=== PATIENT | male | born 1980 | race African-American/Black ===

== ENCOUNTER 2018-03-14 17:22 | Observation (INO) | payer MEDICARE, MEDICAID ==
[~2018-03-14] VITALS: Ht 172.7 cm; Wt 179.5 kg
[2018-03-14] MEDS ORDERED: METF500T5 PO (17:40)
[2018-03-14] MEDS ORDERED: GABA300C10 PO (17:40)
[2018-03-14] MEDS ORDERED: LOSA25TA5 PO (17:40)
[2018-03-14] MEDS ORDERED: OLAN10TA9 PO (17:40)
[2018-03-14 17:54] LABS: BASOPHILS # (AUTO) 0.02 x10^3/uL (0-0.1); BASOPHILS % (AUTO) 0 % (0-1); EOSINOPHILS # (AUTO) 0.07 x10^3/uL (0-0.4); EOSINOPHILS % (AUTO) 2 % (1-7); LYMPHOCYTES # (AUTO) 1.09 x10^3/uL (1-3.4); LYMPHOCYTES % (AUTO) 21 % (22-44); MD NO; MEAN CORPUSCULAR HEMOGLOBIN 23.9 pg (27.5-34.5); MEAN CORPUSCULAR HGB CONC 30.9 g/dL (33.2-36.2); MEAN CORPUSCULAR VOLUME 77.2 fL (81-97); MEAN PLATELET VOLUME 8.8 fL (7.4-10.4); MONOCYTES # (AUTO) 0.59 x10^3/uL (0.2-0.8); MONOCYTES % (AUTO) 12 % (2-9); NEUTROPHILS # (AUTO) 3.32 x10^3/uL (1.8-6.8); NEUTROPHILS % (AUTO) 65 % (42-75); PLATELET COUNT 274 x10^3/uL (130-400); RED BLOOD COUNT 5.24 x10^6/uL (4.38-5.82); RED CELL DISTRIBUTION WIDTH 16.6 % (9.4-14.8)
[2018-03-14 18:02] LABS: ALANINE AMINOTRANSFERASE 30 U/L (12-78); ALBUMIN 3.3 g/dL (3.4-5.0); ANION GAP 6 mmol/L (5-15); CALCIUM 8.2 mg/dL (8.5-10.1); CHLORIDE 106 mmol/L (98-107); CREATININE 1.18 mg/dL (0.7-1.3)
[2018-03-14 18:03] LABS: SALICYLATE LEVEL < 1.7 mg/dL (2.8-20.0)
[2018-03-14 18:04] LABS: ALKALINE PHOSPHATASE 67 U/L (45-117); BILIRUBIN,TOTAL 0.2 mg/dL (0.2-1.0); TOTAL PROTEIN 6.8 g/dL (6.4-8.2)
[2018-03-14 18:06] LABS: ACETAMINOPHEN < 2 mcg/mL (10-30)
[2018-03-14 18:13] LABS: AMPHETAMINE SCREEN, URINE Positive (Negative); BARBITURATE SCREEN, URINE Negative (Negative); BENZODIAZEPINE SCREEN, URINE Negative (Negative); CANNABINOID SCREEN, URINE Positive (Negative); COCAINE SCREEN, URINE Negative (Negative); METHADONE SCREEN, URINE Negative (Negative); OPIATE SCREEN, URINE Negative (Negative)
[2018-03-14] MEDS ORDERED: ZIPRASIDONE 20MG CAPSULE PO SCH (23:30)
[2018-03-14] MEDS ORDERED: ONDANSETRON ODT 4 MG PO PRN (23:30)
[2018-03-14] MEDS ORDERED: ACETAMINOPHEN 325 MG TABLET PO PRN (23:30)
[2018-03-15 00:10] VITALS: BP 138/97
[2018-03-15] MEDS ORDERED: INSULIN REGULAR 100 UNITS/ML, 3ML VIAL SQ-INSULIN SCH (07:00)
[2018-03-15] MEDS ORDERED: metFORMIN 500 MG TABLET PO SCH (09:00)
[2018-03-15] MEDS ORDERED: LOSARTAN 25MG TABLET PO SCH (09:00)
== END 2018-03-15 03:16 ==
LOC: ED 18:46 → EDIP 22:09 → 2N 23:58
PROVIDERS: ADMIT Internal Medicine; ATTEND Internal Medicine
DX: R45.851 Suicidal ideations (principal); R44.3 Hallucinations, unspecified; F31.9 Bipolar disorder, unspecified; E11.42 Type 2 diabetes mellitus with diabetic polyneuropathy; E66.01 Morbid (severe) obesity due to excess calories; F12.90 Cannabis use, unspecified, uncomplicated; F15.10 Other stimulant abuse, uncomplicated; F43.10 Post-traumatic stress disorder, unspecified; I10 Essential (primary) hypertension; Z59.0 Homelessness; Z72.0 Tobacco use
CPT/HCPCS: 36415; 80053; 80307; 80329; 85025; 99285; G0378; G0480